=== PATIENT | female | born 1975 | race Caucasian/White ===

== ENCOUNTER 2023-01-24 01:24 | Day surgery (SDC) | payer OTHER, SELFPAY ==
[2023-01-16 11:40] VITALS: BMI 19.1
--- NOTE | 2023-01-16 11:46 | PC.NURSE ---
Report to the Outpatient Waiting Room, entrance under the green pavilion located off [facility], at time 0800 on date 01/24/23. Planned Procedure Time: 1000. Time changes happen often and if your time is changed the preop area will call you the afternoon before. - You and your visitor will be asked to self-screen and do not enter if you have any COVID symptoms. - Only one visitor is requested with a max of two and NO children visitors are allowed at this time. - The patient visitor may be requested to leave or wait in car when not with patient due to distancing restrictions. - A mask is optional within the hospital at this time. Patients may have clear liquids (water, carbonated beverages, clear teas, apple juice) until 3 hours prior to surgery with a maximum of 20 ounces. - No food from midnight until time of surgery Take the following medications with a SIP of water the morning of surgery: N/A DO NOT STOP ANY OF YOUR OTHER PRESCRIPTION MEDICATIONS PRIOR TO SURGERY EXCEPT THE FOLLOWING Medications to discontinue per physician: N/A Date to take last dose: N/A Please no make-up, nail wolof, hairspray, perfume, deodorant, or body powder the day of surgery. No jewelry (including any body piercings) or valuables the day of surgery, leave them at home. Please take a shower or bath the night before, or the morning of, surgery with an antibacterial soap. Wear comfortable, loose fitting clothing. - Jewelry must be removed prior to entering the operating room. Rings and piercings that are not removed may be cut off. - The hospital will not accept responsibility for valuables. - Please leave all valuables, including medications, at home the day of surgery. If you are going home after surgery, a licensed trailer driver must drive you home. - NO public transportation without another adult if you receive anesthesia. - We recommend that an adult stay with you for 24 hours following discharge. - We also recommend that you do not drive, make important decision, drink alcoholic beverages, or take any drugs that were not prescribed by your health care provider for at least 24 hours after your discharge time. Follow any additional instructions given to you from your surgeon. If you or anyone in your household have experienced Covid symptoms in the past week, please notify your surgeon or the nurse liaison at the phone number below for possible testing. Telephone instructions given to PT - BUTCH LOPEZ and asked if any additional questions and then verbalized understanding. Patient advised to call surgeon office or pre surgery nurse liaison [phone] if any additional questions.
[2023-01-24] VITALS (8 sets, daily range): BP systolic 106–146; BP diastolic 75–94; PULSE 66–89; RESP 12–18; TEMP 36.2; O2SAT 94–100
[2023-01-24] MEDS: LACTATED RINGERS 1,000 ML 30 ML IV CONT ×2 (08:20→10:32)
--- NOTE | 2023-01-24 09:18 | P.OP_ITS ---
Procedure Note - Detailed Date of Procedure 01/24/23 Pre-op Diagnosis micromastia Post-op Diagnosis Same Procedure Performed Bilateral Augmentation Mammaplasty Surgeon Kb Leary MD Anesthesia General Findings Bilateral [place] SoftTouch 485cc Right - Dual Plane 1 REF# [id number] SN [id number] Left - Dual Plane 1 REF# [id number] SN [id number] Description of Procedure She is here today for bilateral breast augmentation. Previously and again today the risks, benefits, alternatives were discussed in extensive detail. I wanted her to be very realistic about the risks involved as well as expectations. We discussed aftercare and what to monitor for. Made sure answered all of her questions to her satisfaction today and consent was obtained. Marked in the preoperative holding area with their verification. The patient was taken to the operating room placed supine on the operating table. Anesthesia was provided by anesthesiology. A surgical time-out was taken. We cleansed the skin and 1% lidocaine and 0.25% Marcaine with epinephrine was used anesthetize as a field block. She was prepped and draped in a standard sterile fashion. Tegaderm nipple Waterman were placed. A 15 blade used to make an incision along the inframammary fold. Dissection was continued at 45 degree angle until the chest wall as identified. I incised the pectoralis major along its inferior border and completely released the inferior border leaving the medial border intact. I created a subpectoral pocket in the appropriate dimensions based on our preoperative planning for the implant. I then copiously irrigated with saline solution and verified a strict hemostas is. Next the use a triple antibiotic and Betadine containing solution to irrigate the pocket. I washed my gloves with the triple antibiotic and Betadine solution. We washed the implant immediately upon opening it with this solution and only opened it when we needed it. I used implant funnel and no-touch technique. The implant was introduced into the pocket using the funnel. Having verified po sitioning of the implant this was closed using 2-0 Vicryl followed by 3-0 Monocryl in a running subcuticular 4-0 Monocryl followed by tissue glue. Fluffs and surgical bra were placed. Patient was awoke and taken to PACU without difficulty. All instrument sponge counts were correct at the end of the case. Estimated Blood Loss 25 Drains No Packing No Pathology None sent Complications No immediate complications Condition Stable Disposition PACU
--- NOTE | 2023-01-24 09:18 | WPDHPUPDATE1 ---
History and Physical Update Update Date/Time: 01/24/23 09:18 History and Physical has been reviewed, including an updated exam of the patient. There are NO changes in the patient's condition. Risks, benefits, and alternatives have been discussed and questions answered. Patient agrees to proceed with procedure.
--- NOTE | 2023-01-24 09:31 | P.PNAN_ITS ---
Anes - Initial Pre Proc Eval Procedure: Operation Date: 01/24/23 10:00 Proposed Procedures p Bilateral Breast Augmentation - Kb Leary MD Date/Time: 01/24/23 09:31 Surgeon: Kb Leary MD Pre Op Diagnosis: micromastia Patient Data Age: 47 Gender: F Height: 1.65 m Weight: 55.7 kg Last Vital Signs Temp 97.1 F L 01/24/23 08:10 Pulse 66 01/24/23 08:10 Resp 16 01/24/23 08:10 BP 112/79 01/24/23 08:10 Pulse Ox 100 01/24/23 08:10 O2 Del Method Room Air 01/24/23 08:10 Allergies Allergy/AdvReac Type Severity Reaction Status Date / Time No Known Allergies Allergy Verified 01/24/23 08:03 Home Medications Medication Instructions Recorded Confirmed Type quetiapine 25 mg tablet 25 mg PO HS 01/16/23 01/16/23 History Patient hx anesthesia problems: none Family hx anesthesia problems: none Results Review: All pre-operative results and documents have been reviewed as part of the pre- operative evaluation. [facility] Social History Social History Smoking packs per day: 0.5 Smoking cigarettes per day: 10.0 Years smoked: 25 Smoking pack-years: 12.50 Smoking status: Former smoker Tobacco type: cigarettes Smoking end date: 07/23/22 Alcohol intake: current Alcohol use details: 2/MONTH Substance use: never Substance use type: does not use Living arrangements: with family Additional living arrangements comments: DAUGHTER Spiritual care concerns: No Anes - Eval Final PreProcedure Day of Procedure 01/24/23 09:31 Patient weight: normal Heart: regular rate and rhythm Lungs: clear to auscultation Airway: Mallampati scale class II Neurological: alert and oriented Last oral intake: >/= 8 hours ASA classification: II Emergent: no Anesthetic plan: proceed Anesthesia type and monitoring: general LMA and standard monitoring Results Review: All pre-operative results and documents have been reviewed as part of the pre- operative evaluation. Informed Consent: The patient's anesthetic plan and its attendant risks and benefits were discussed with the patient/family/POA. Questions were solicited and answers provided to the satisfaction of the patient/family/POA.
[2023-01-24] MEDS: TRANEXAMIC ACID 1,000MG/ISO100 1,000 MG/100 ML BAG 200 MG IVPB (09:36)
[2023-01-24] MEDS: ceFAZolin 2 GM/D5W 50 ML 2 GM/50 ML BAG IVPB (09:41)
[2023-01-24] MEDS: NACL 0.9% IRRIG POUR BOTTLE 900 ML, GENTAMICIN SULFATE INJ 160 MG, ceFAZolin 2 GM, POVI... IRRIGATION (10:00)
[2023-01-24] MEDS: BUPivacaine HCL 0.25% PF 30 ML VIAL INFILTRATE (10:02)
[2023-01-24] MEDS: LIDO 1%/EPINEPHRINE 1:100,000 20 ML VIAL 30 ML INFILTRATE (10:04)
[2023-01-24] MEDS: fentaNYL CITRATE INJ (*CRX) 100 MCG/2 ML VIAL 25 MCG IV PUSH ×8 (10:42→11:10)
[2023-01-24] MEDS: oxyCODONE HCL (*CRX) 5 MG TAB IR PO (11:51)
== END 2023-01-24 12:20 | disposition home or self-care (01) ==
PROVIDERS: Visit Provider Surgery Plastic and Reconstructive Surgery
PROC: (CPT 19325; principal; 2023-01-24 10:00)
DX: Z41.1 Encounter for cosmetic surgery (principal); N64.82 Hypoplasia of breast; Z87.891 Personal history of nicotine dependence
CPT/HCPCS: 19325; A9270; J0690; J1100; J1580; J2250; J2405; J2704; J3010; J7120

== ENCOUNTER 2023-05-25 08:00 | Outpatient (NON) | payer BC, SELFPAY | END 2023-05-25 08:01 | disposition home or self-care (01) | LOC: ANHLAB 05-26 12:56 | PROVIDERS: Visit Provider Nurse Practitioner | DX: D22.0 Melanocytic nevi of lip (principal) | CPT/HCPCS: 88305 ==